=== PATIENT | male | born 1975 | race Two or more races ===

== ENCOUNTER 2020-02-01 18:58 | Emergency (ER) | payer OTHER ==
[~2020-02-01] VITALS: Ht 177.8 cm; Wt 91.0 kg
--- NOTE | 2020-02-01 19:33 | PHYS DOC ---
General Adult HPI: HPI: 44-year-old male past medical history of polysubstance abuse (drinks a liter of alcohol daily, marijuana, methamphetamine and heroin), [facility] from [facility] with complaints of left-sided chest pain, body aches and headache. 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 Patient was just put in [facility] 2 days ago and had negative Covid test. Last drink was 2 days ago. States he has been out of [facility] for 45 days doing IV drugs-heroin, prior to this was admitted to a [facility] in [place]. Denies any history of alcohol withdrawal or seizures. Reports a chest pain is left-sided and sharp, nonradiating has been present for the past 24 hours. Review of Systems: Review of Systems: Constitutional: Denies fever or chills. [] Eyes: Denies change in visual acuity. [] HENT: Denies nasal congestion or sore throat. [] Respiratory: Denies cough or shortness of breath. [] Cardiovascular: Denies syncope or edema. [] GI: Denies abdominal pain, nausea, vomiting, bloody stools or diarrhea. [] : Denies dysuria or hematuria Musculoskeletal: Denies back pain or joint pain. [] Integument: Denies rash or crepitus Neurologic: Denies headache, focal weakness or sensory changes. [] Endocrine: Denies polyuria or polydipsia. [] Lymphatic: Denies swollen glands. [] Psychiatric: Denies depression or anxiety. [] Heart Score: HEART Score for Chest Pain: HEART Score for Chest Pain Response (Comments) Value History Slighlty/Non-Suspicious 0 ECG Normal 0 Age >45 - < 65 1 Risk Factors 1 or 2 Risk Factors 1 Troponin < Normal Limit 0 Total 2 Risk Factors: Risk Factors: DM, Current or recent (<one month) smoker, HTN, HLP, family history of CAD, obesity. Risk Scores: Score 0 - 3: 2.5% MACE over next 6 weeks - Discharge Home Score 4 - 6: 20.3% MACE over next 6 weeks - Admit for Clinical Observation Score 7 - 10: 72.7% MACE over next 6 weeks - Early Invasive Strategies Physical Exam: PE: Constitutional: no acute distress, non-toxic appearance. HENT: Normocephalic, atraumatic, no tongue fasciculations or signs of trauma Eyes: EOMI, conjunctiva normal, no discharge. Neck: Normal range of motion, supple, Cardiovascular: S1/2 present, regular rhythm Lungs & Thorax: Speaking in full sentences, bilateral equal chest rise, no tachypnea or increased work of breathing Abdomen: soft, no tenderness, Skin: Warm, dry, no erythema, no rash. [] Back: No tenderness, no CVA tenderness. [] Extremities: No tenderness, no cyanosis, no edema, no tremors Neurologic: Alert and oriented X 3, normal motor function, normal sensory funct ion, no focal deficits noted. [] Psychologic: Affect normal, judgement normal, mood normal. [] EKG: EKG: Sinus rhythm at 75 bpm, no axis deviation, normal intervals, low limb lead voltage, no ST elevations or ST depressions Radiology/Procedures: Radiology/Procedures: IMAGING REPORT Signed PATIENT: JUSTYNA SMALLWOODACCOUNT: [id number] : 1975 LOCATION: ER AGE: 44 SEX: M EXAM STATUS: REG ER ORD. PHYSICIAN: NEGIN KING DO REASON: headache PROCEDURE: CT HEAD WO CONTRAST EXAM: Head CT without contrast. HISTORY: Headache. TECHNIQUE: Computed tomographic images of the head were obtained without contrast. *One or more of the following individualized dose reduction techniques were utilized for this examination: 1. Automated exposure control. 2. Adjustment of the mA and/or kV according to patient size. 3. Use of iterative reconstruction technique. COMPARISON: None. FINDINGS: There is no acute or subacute extra-axial or intraparenchymal hemorrhage. There is no mass effect or midline shift. There is no hydrocephalus. The kinney-white matter differentiation pattern is intact. The visualized portions of the orbits, paranasal sinuses and mastoid air cells are unremarkable. No suspicious calvarial lesion is seen. IMPRESSION: No acute intracranial findings. Electronically signed by: Yasmeen Parekh MD (02/01/2020 8:02 PM) [facility] DICTATED and SIGNED BY: YASMEEN PAREKH MD DATE: 02/01/204839WBR4 0 IMAGING REPORT Signed PATIENT: JUSTYNA SMALLWOODACCOUNT: [id number] : 1975 LOCATION: ER AGE: 44 SEX: M EXAM STATUS: REG ER ORD. PHYSICIAN: NEGIN KING DO REASON: cp PROCEDURE: PORTABLE CHEST 1V EXAM: Chest, single view. HISTORY: Chest pain. COMPARISON: None. FINDINGS: A frontal view of the chest is obtained. There is suspected right infrahilar atelectasis or interstitial infiltrate. There is no consolidation, pleural effusion or pneumothorax. The heart is normal in size. IMPRESSION: Suspected right infrahilar atelectasis or interstitial infiltrate. Electronically signed by: Yasmeen Parekh MD (02/01/2020 8:13 PM) [facility] DICTATED and SIGNED BY: YASMEEN PAREKH MD DATE: 02/01/20 0 Impression: 0 criteria PERC rule No need for further workup, as <2% chance of PE. If no criteria are positive and clinicians pre-test probability is <15%, PERC Rule criteria are satisfied 0 points Low risk group for DVT. Unlikely according to [place] DVT studies. Course & Med Decision Making: Course & Med Decision Making Pertinent Labs and Imaging studies reviewed. (See chart for details) Concern for atypical chest pain in a PSA, no signs/sxs of withdrawal. Symptoms have been present for more than 12 hours, cocaine negative, tested positive for methamphetamines. Patient low risk for mace. 0 points for [place] DVT study and PERC rule. CXR w/possible interstitial infiltrate, will cover with [facility]. Will discharge home with strict ED return precautions were given for syncope, chest heaviness or tightness, dyspnea or hemoptysis. Encouraged urgent outpatient follow-up with PMD and cardiology. Life-threatening processes were considered but are low suspicion at this time, given history, physical exam and ED workup. Pt was educated on all prescription medications and adverse effects. All patient's questions were answered and pt was stable at time of discharge. Life/limb-threatening differential includes but is not limited to, acute myocardial infarction, aortic dissection, congestive heart failure, esophageal injury including rupture, surgical abdomen, arrhythmia, cardiomyopathy, myocarditis, pericarditis, peptic ulcer disease, pneumomediastinum, pneumonia, pneumothorax, pulmonary embolus, unstable angina, rib fracture, contusion, pericardial tamponade or effusion, pulmonary contusion I spoken with the patient and her caregivers. I explained the patient's condition, diagnoses and treatment plan based on the information available to me at this time. I have answered the patient and her caregiver's questions and addressed any concerns. The patient and her caregivers have a good understanding of patient's diagnosis, condition and treatment plan as can be expected at this point. Vital signs have been stable. Patient's condition is stable and appropriate for discharge from the emergency department. Patient will pursue further outpatient evaluation with primary care physician or other designated or consulting physician as outlined in the discharge instructions. The patient and/or caregivers are agreeable to this plan of care and follow-up instructions have been explained in detail. The patient and/or caregivers have received these instructions in written form and have expressed an understanding of the discharge instructions. The patient and/or caregivers are aware that any significant change of condition or worsening of symptoms should prompt immediate return to this or the closest emergency department or [facility] to 1. Nelsy Disclaimer: Nelsy Disclaimer: This electronic medical record was generated, in whole or in part, using a voice recognition dictation system. Departure Departure Impression: Primary Impression: Polysubstance abuse Additional Impression: Chest pain Disposition: 01 DC HOME SELF CARE/HOMELESS Condition: STABLE Referrals: UNKNOWN PCP NAME (PCP) FOLLOW UP WITH FAMILY MEDICINE: Family Medicine Address: [address] [place] [address] Patient Instructions: Alcohol and Drug Addiction, Finding Treatment, Chest Pain (Nonspecific), Drug Abuse, FAQs Additional Instructions: FOLLOW UP WITH CARDIOLOGY: [facility] Address: [address] [place] [address] EMERGENCY DEPARTMENT GENERAL DISCHARGE INSTRUCTIONS Thank you for coming to [facility] Emergency Department (ED) melinda wheeler and trusting us with you care. We trust that you had a positive experience in our Emergency Department. If you wish to speak to the department management, you may call the Director at [phone]. YOUR FOLLOW UP INSTRUCTIONS ARE FOLLOWS: 1. Do you have a private Doctor? If you do not have a private doctor, please ask for a resource list of physicians or clinics that may be able to assist you with follow up care. 2. The Emergency Physicain has interpreted your x-rays. The X-Ray specialist will also review them. If there is a change in the findings, you will be notified in 48 hours when at all possible. 3. A lab test or culture has been done, your results will be reviewed and you will be notified if you need a change in treatment. ADDITIONAL INSTRUCTIONS AND INFORMATION: 1. Your care today has been supervised by a physician who is specially trained in emergency care. Many problems require more than one evaluation for a complete diagnosis and treatment. We recommend that you schedule your follow up appointment as recommended to ensure complete treatment of you illness or injury. If you are unable to obtain follow up care and continue to have a problem, or if your condition worsens, we recommend that you return to the ED. 2. We are not able to safely determine your condition over the phone nor are we able to give sound medical advice over the phone. For these safety reasons, if you call for medical advice we will ask you to come to the ED for further evaluation. 3. If you have any questions regarding these discharge instructions please call the ED at [phone]. SAFETY INFORMATION: In the interest of safety, wellness, and injury prevention; we encourage you to wear your sealbelt, if you smoke; quite smoking, and we encourage family to use a protective helmet for bicycling and other sporting events that present an increased risk for head injury. IF YOUR SYMPTOMS WORSEN OR NEW SYMPTOMS DEVELOP, OR YOU HAVE CONCERNS ABOUT YOUR CONDITION; OR IF YOUR CONDITION WORSENS WHILE YOU ARE WAITING FOR YOUR FOLLOW UP APPOINTMENT; EITHER CONTACT YOUR PRIMARY CARE DOCTOR, THE PHYSICIAN WHOSE NAME AND NUMBER YOU WERE GIVEN, OR RETURN TO THE ED IMMEDIATELY. Scripts Azithromycin (ZITHROMAX) 250 Mg Tablet 1 PKG PO UD, #6 TAB Prov: NEGIN KING DO 02/01/20 NEGIN KING DO Feb 01, 2020 19:33
[2020-02-01 20:00] LABS: BASO % 1 % (0-3); EOS # 0.2 x10^3/uL (0.0-0.7); EOS % 2 % (0-3); HEMATOCRIT 50.5 % (39.0-53.0); LYMPH # 1.1 x10^3/uL (1.0-4.8); LYMPH % 16 % (24-48); MEAN CORPUSCULAR HEMOGLOBIN 30 pg (25-35); MEAN CORPUSCULAR HGB CONC 34 g/dL (31-37); MEAN CORPUSCULAR VOLUME 89 fL (79-100); MONO # 0.5 x10^3/uL (0.0-1.1); MONO % 7 % (0-9); NEUT # 5.3 x10^3/uL (1.8-7.7); NEUT % 75 % (31-73); PLATELET COUNT 215 x10^3/uL (140-400); RED BLOOD COUNT 5.71 x10^6/uL (4.30-5.70); RED CELL DISTRIBUTION WIDTH 13.9 % (11.5-14.5); WHITE BLOOD COUNT 7.1 x10^3/uL (4.0-11.0)
--- NOTE | 2020-02-01 20:04 | RAD ---
EXAM: Head CT without contrast. HISTORY: Headache. TECHNIQUE: Computed tomographic images of the head were obtained without contrast. *One or more of the following individualized dose reduction techniques were utilized for this examina tion: 1. Automated exposure control. 2. Adjustment of the mA and/or kV according to patient size. 3. Use of iterative reconstruction technique. COMPARISON: None. FINDINGS: There is no acute or subacute extra-axial or intraparenchymal hemorrhage. There is no mass effect or midline shift. There is no hydrocephalus. The kinney-white matter differentiation pattern is intact. The visualized portions of the orbits, paranasal sinuses and mastoid air cells are unremarkable. No s uspicious calvarial lesion is seen. IMPRESSION: No acute intracranial findings. Electronically signed by: Yasmeen Gresham MD (02/01/2020 8:02 PM) [facility]
[2020-02-01 20:12] LABS: BARBITURATES NEG (NEG); BENZODIAZEPINES NEG (NEG); CALCIUM 9.2 mg/dL (8.5-10.1); CANNABINOIDS NEG (NEG); COCAINE NEG (NEG); CREATININE 1.1 mg/dL (0.7-1.3); GFR 72.4; METHADONE NEG (NEG); OPIATES NEG (NEG); PHENCYCLIDINE NEG (NEG)
[2020-02-01 20:13] LABS: AMPHETAMINE/METHAMPHETAMINE POS (NEG)
--- NOTE | 2020-02-01 20:16 | RAD ---
EXAM: Chest, single view. HISTORY: Chest pain. COMPARISON: None. FINDINGS: A frontal view of the chest is obtained. There is suspected right infrahilar atelectasis or interstitial infiltrate. There is no consolidation, pleural effusion or pneumothorax. The heart is n ormal in size. IMPRESSION: Suspected right infrahilar atelectasis or interstitial infiltrate. Electronically signed by: Yasmeen Gresham MD (02/01/2020 8:13 PM) [facility]
[2020-02-01 20:20] LABS: ALBUMIN 3.9 g/dL (3.4-5.0); ALBUMIN/GLOBULIN RATIO 1.3 (1.0-1.7); MAGNESIUM 2.1 mg/dL (1.8-2.4); TOTAL BILIRUBIN 0.6 mg/dL (0.2-1.0); TOTAL PROTEIN 6.9 g/dL (6.4-8.2)
[2020-02-01 21:16] VITALS: BP 126/70
[2020-02-01] MEDS ORDERED: AZIT250T PO (21:25)
--- NOTE | 2020-02-02 07:05 | EKG ---
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
== END 2020-02-01 22:13 | disposition home or self-care (01) ==
LOC: EEVIPCON 18:58 → ER 18:58
DX: F19.10 Other psychoactive substance abuse, uncomplicated (principal); R07.89 Other chest pain; R51.9 Headache, unspecified
CPT/HCPCS: 36415; 70450; 71045; 80053; 80307; 83690; 83735; 84484; 85025; 93005; 99285